=== PATIENT | female | born 1945 | race Caucasian/White ===

== ENCOUNTER 2017-01-25 18:24 | Emergency (ER) | payer MEDICARE ==
--- NOTE | ~2017-01-25 | ER ---
PATIENT'S NAME: Hema MCNULTY [facility] AGE: 72 Y [address] ROOM: [place] [id number] LOCATION: [facility] ADMIT DATE: 01/25/2017 ER/Outpatient Report DISCHARGE DATE: 01/25/2017 FAMILY PHYSICIAN: Olaf Clement MD ATTENDING PHYSICIAN: Marc Garcia CHIEF COMPLAINT: Elevated blood pressure, headache. HISTORY OF PRESENT ILLNESS: The patient states she woke this morning with a headache. She has had some nausea but no vomiting. She states the headache is just a generalized headache. It is not the worst headache she has ever had, but she is concerned because she is having fullness in her ears, almost a ringing type sensation in her ears. She did check her blood pressure at home and it was 164/98 this morning; and then this evening, it was 210/110. She was concerned and wanted to be evaluated. She denies having any chest pain. She has not had any dizziness or lightheadedness. She has not had a cough, fever, congestion, runny nose. She has not had any change in her bowel or bladder pattern. ALLERGIES: PENICILLIN. CURRENT MEDICATIONS: On her chart and reviewed by me. PAST MEDICAL HISTORY: Hypothyroidism. PAST SURGICAL HISTORY: TMJ release, abdominal mesh. SOCIAL HISTORY: She denies use of tobacco, drugs, or alcohol. REVIEW OF SYSTEMS: All negative other than those mentioned in the HPI. PHYSICAL EXAMINATION: VITAL SIGNS: She weighs 71 kg, blood pressure is 209/105, pulse of 87, respirations 16, temperature of 97.3, O2 saturation is 95% on room air. GENERAL: She is awake, alert, and oriented x4. SKIN: Her skin is pink, warm, and dry. RESPIRATIONS: Even and nonlabored. HEENT: Pupils are equal and reactive to light. Extraocular movement is PATIENT'S NAME: Hema MCNULTY [facility] AGE: 72 Y [address] ROOM: [place] [address] LOCATION: [facility] ADMIT DATE: 01/25/2017 ER/Outpatient Report DISCHARGE DATE: 01/25/2017 FAMILY PHYSICIAN: Olaf Clement MD ATTENDING PHYSICIAN: Marc Garcia intact. Negative nystagmus. TMs are clear. Nasal is clear. Oropharynx is clear. Mucous membranes are pink and moist. NECK: Supple. No lymphadenopathy. LUNGS: Lung sounds are clear throughout. HEART: Regular rate and rhythm. EXTREMITIES: The patient walked in with a steady even gait. No peripheral edema is noted. LABORATORY DATA AND X-RAYS: Lab work was drawn. CBC is within normal limits. Chem panel is within normal limits. BUN 15, with a creatinine 0.8. Cardiac enzymes are all negative. Free T4 is 1.3 with a TSH of 0.045. EMERGENCY DEPARTMENT COURSE: Saline lock was initiated. The patient was given Zofran 4 mg IV and Toradol 30 mg IV. She was monitored, and after approximately 15 minutes, her blood pressure was down to 182/84. She states she still has a generalized headache, but the ringing, whooshing in her ears is improved. Continue to monitor vital signs. Blood pressure was 158/74. The patient was given Tylenol 1000 mg p.o. She continued to be awake, alert, and oriented x4. Denied any vision changes. She was not dizzy or lightheaded. Blood pressure was 153/71. IMPRESSION: Headache and elevated blood pressure. PLAN: Home, rest, fluids. The patient does take Singulair for seasonal allergies. Discussed with her she could try a nasal spray to see if that help more with the ringing of the ears. She asked about Sudafed. I did discuss with her that we would not want her to take it for more than 3 days as it can affect her blood pressure. I recommended that she follow up with Dr. Clement, her primary provider, in the next 2 to 3 days. She verbalized understanding. PANCHITO WRIGHT APRN FOR MD KYLE CHRISTY/tl /[id number] d: 01/26/17 0132 t: 01/28/17 1218, OUTPATIENT REPORT
[2017-01-25 18:57] LABS: BASOPHIL % 0.4 %; EOSINOPHIL # 0.3 K/uL (0.0-0.5); EOSINOPHIL % 2.6 %; HEMATOCRIT 45.5 % (33.0-46.0); HEMOGLOBIN 16.1 g/dL (10.0-15.0); IMMATURE GRANULOCYTE % 0.3 %; LYMPHOCYTE % 39.7 %; MCH 31.9 pg (27.0-34.0); MCHC 35.4 gm/dL (32.0-36.5); MCV 90.1 fl (83.0-98.0); MONOCYTE # 0.7 K/uL (0.0-1.0); MONOCYTE % 7.2 %; MPV 9.9 fl (9.4-12.4); NEUTROPHIL % 49.8 %; NRBC % 0 /100WBC (0-0.00); PLATELET COUNT 274 K/uL (150-450); RBC 5.05 M/uL (3.50-5.50); RDW-CV 11.8 % (11.9-14.6)
[2017-01-25 19:17] LABS: ALBUMIN 3.8 gm/dL (3.5-5.0); ALK PHOS 78 IU/L (33-138); ALT 37 IU/L (12-78); BLOOD UREA NITROGEN 15 mg/dL (6-24); CALCIUM 9.3 mg/dL (8.5-10.5); CHLORIDE 108 mMol/L (96-110); CO2 23 mMol/L (22-32); CREATININE 0.8 mg/dL (0.5-1.1); ESTIMATED GFR (MDRD EQUATION) > 60; SODIUM 139 mMol/L (135-145); TOTAL BILIRUBIN 0.4 mg/dL (0.0-1.5)
[2017-01-25 19:18] LABS: ANION GAP 11.9 (10.0-19.0); AST 32 IU/L (10-40); CPK 139 IU/L (21-215); POTASSIUM 3.9 mMol/L (3.7-5.1)
== END 2017-01-25 19:54 | disposition disaster alternative care site (69) ==
LOC: GMED 18:24
PROVIDERS: Emergency Medicine
DX: R51 Headache (principal); R03.0 Elevated blood-pressure reading, without diagnosis of hypertension; E03.9 Hypothyroidism, unspecified; Z79.899 Other long term (current) drug therapy; Z88.0 Allergy status to penicillin; Z98.890 Other specified postprocedural states
CPT/HCPCS: J1885; J2405